=== PATIENT | female | born 1965 | race Caucasian/White ===

== ENCOUNTER 2016-05-03 11:13 | Outpatient (RCR) | payer OTHER, MEDICAID ==
[2016-05-03 10:45] LABS: MEAN CORPUSCULAR HGB CONC 34.7 g/dL (31.0-37.0); MEAN CORPUSCULAR VOLUME 93 FL (80-100); MEAN PLATELET VOLUME 9.7 FL (6.0-9.5); PLATELET COUNT 260 10^3uL (150-450); WHITE BLOOD COUNT 2.67 10^3uL (4.0-11.0)
[2016-05-03 11:03] LABS: MEAN CORPUSCULAR HEMOGLOBIN 32.3 PG (26.0-34.0)
[2016-05-03 11:07] LABS: BAND NEUTROPHILS % 0 % (0-6); EOSINOPHILS % 3 % (0-4); LYMPHOCYTES # 0.4 #; MONOCYTES # 0.2 #; MONOCYTES % 11 % (3-11); RBC MORPH NORMAL (NORMAL); SEGMENTED NEUTROPHILS % 71 % (51-67); TOTAL CELLS COUNTED 100
[2016-05-03 11:56] LABS: ALBUMIN 4.2 g/dL (3.4-5.0); ANION GAP 16.9 MEQ/L (3-15); CALCULATED IONIZED CALCIUM 4.2 mg/dL (3.8-4.6); MAGNESIUM* 2.1 mg/dL (1.6-2.3); PHOSPHORUS 4.9 mg/dL (2.4-4.9); TOTAL PROTEIN 7.7 g/dL (6.4-8.5)
[2016-06-08 10:51] LABS: MEAN CORPUSCULAR HGB CONC 34.8 g/dL (31.0-37.0); MEAN CORPUSCULAR VOLUME 93 FL (80-100); MEAN PLATELET VOLUME 10.2 FL (6.0-9.5); PLATELET COUNT 198 10^3uL (150-450); WHITE BLOOD COUNT 2.18 10^3uL (4.0-11.0)
[2016-06-08 10:57] LABS: ALBUMIN 4.2 g/dL (3.4-5.0); ANION GAP 18.1 MEQ/L (3-15); CALCULATED IONIZED CALCIUM 4.1 mg/dL (3.8-4.6); MAGNESIUM* 1.9 mg/dL (1.6-2.3); PHOSPHORUS 4.2 mg/dL (2.4-4.9); TOTAL PROTEIN 7.1 g/dL (6.4-8.5)
[2016-06-08 11:14] LABS: MEAN CORPUSCULAR HEMOGLOBIN 32.5 PG (26.0-34.0)
[2016-06-08 11:40] LABS: BAND NEUTROPHILS % 1 % (0-6); EOSINOPHILS % 3 % (0-4); LYMPHOCYTES # 0.2 #; MONOCYTES # 0.1 #; MONOCYTES % 7 % (3-11); SEGMENTED NEUTROPHILS % 77 % (51-67)
[2016-06-08 11:41] LABS: RBC MORPH NORMAL (NORMAL); TOTAL CELLS COUNTED 100
[2016-07-12 14:03] LABS: MEAN CORPUSCULAR VOLUME 95 FL (80-100); MEAN PLATELET VOLUME 9.6 FL (6.0-9.5); PLATELET COUNT 194 10^3uL (150-450); WHITE BLOOD COUNT 2.79 10^3uL (4.0-11.0)
[2016-07-12 14:17] LABS: MEAN CORPUSCULAR HEMOGLOBIN 33.8 PG (26.0-34.0); MEAN CORPUSCULAR HGB CONC 35.5 g/dL (31.0-37.0)
[2016-07-12 14:18] LABS: BAND NEUTROPHILS % 1 % (0-6); EOSINOPHILS % 6 % (0-4); LYMPHOCYTES # 0.2 #; MONOCYTES # 0.1 #; MONOCYTES % 4 % (3-11); RBC MORPH NORMAL (NORMAL); SEGMENTED NEUTROPHILS % 80 % (51-67); TOTAL CELLS COUNTED 100
[2016-07-12 14:32] LABS: ALBUMIN 3.4 g/dL (3.4-5.0); ANION GAP 13.6 MEQ/L (3-15); CALCULATED IONIZED CALCIUM 4.4 mg/dL (3.8-4.6); MAGNESIUM* 1.7 mg/dL (1.6-2.3); PHOSPHORUS 3.9 mg/dL (2.4-4.9); TOTAL PROTEIN 6.1 g/dL (6.4-8.5)
== END 2016-08-01 | disposition home or self-care (01) ==
LOC: LAB 11:13
PROVIDERS: ATTEND Internal Medicine Hematology & Oncology
DX: C71.1 Malignant neoplasm of frontal lobe (principal)
CPT/HCPCS: 36415; 80053; 83615; 83735; 84100; 85007; 85027

== ENCOUNTER → 2016-06-09 | Outpatient (REF) | payer OTHER ==
[~2016-06-09] MED LIST: ALPR1TAB7 PO; AMLO10TA82 PO; ATN25T PO; AZAT50TA PO; BACL10TA PO; CEPH-507 PO; CMBV14CC; DEXA2TAB PO; DEXA4TAB PO; DOXE50CA3 PO; ESCI10TA PO; ESCI10TA49 PO; FLUC100T6 PO; FLUT100D; FNT25TD TOP; LD5PT TOP; LEVO100T11 PO; LEVO125T PO; LORA0.5T PO; LVT.1T PO; MESA400T14 PO; METR500T PO; MULT1CAP27; OMEP20CA12 PO; ONDA8TAB13 PO; ONDA8TAB9 PO; OXYC1TAB8 PO; POTA10CA2 PO; POTA10TA10 PO; PRED10TA PO; PRED20TA PO; PROM25SU44 RC; RIVA15TA2 PO; RIVA20TA PO; ROSU20TA PO; SCOP1PAT10 TD; TEMO100C13 PO; TEMO250C6 PO; VIT1TABL57; ZOLP10TA PO
== END ==
LOC: LAB 11:32
PROVIDERS: ATTEND Internal Medicine Hematology & Oncology
DX: C71.1 Malignant neoplasm of frontal lobe (principal)
CPT/HCPCS: 87493

== ENCOUNTER → 2016-06-15 | Outpatient (CLI) | payer OTHER, MEDICAID ==
--- NOTE | 2016-06-15 15:35 | Diagnostic Imaging Report ---
INDICATION: Fall. Weakness. COMPARISON: None available. TECHNIQUE: AP and transscapular Y-view of the left shoulder. FINDINGS: There is anterior and inferior dislocation of the humeral head relative to the glenoid. No evidence of Hill-Sachs impaction fracture or displaced osseous Bankart lesion by radiography. AC joint appears grossly normal in alignment. IMPRESSION: Anterior dislocation of the shoulder. Dictated by: Dictated on workstation # [id number]
== END ==
LOC: RAD 14:36
PROVIDERS: ATTEND Internal Medicine Hematology & Oncology
DX: R53.1 Weakness (principal); S43.015A Anterior dislocation of left humerus, initial encounter; W19.XXXA Unspecified fall, initial encounter
CPT/HCPCS: 73030

== ENCOUNTER 2016-07-09 14:45 | Outpatient (RCR) | payer OTHER, MEDICAID | END 2016-07-23 12:00 | disposition home or self-care (01) | LOC: PT 14:45 | PROVIDERS: ATTEND Internal Medicine Hematology & Oncology | DX: S43.005D Unspecified dislocation of left shoulder joint, subsequent encounter (principal); W01.0XXD Fall on same level from slipping, tripping and stumbling without subsequent striking against object, subsequent encounter; R53.1 Weakness ==

== ENCOUNTER → 2016-07-12 | Outpatient (REF) | payer OTHER, MEDICAID | LOC: LAB 15:44 | PROVIDERS: ATTEND Family Medicine | DX: E03.9 Hypothyroidism, unspecified (principal) | CPT/HCPCS: 84443 ==

== ENCOUNTER → 2016-07-16 | Outpatient (CLI) | payer OTHER, MEDICAID | LOC: RAD 11:59 | PROVIDERS: ATTEND Internal Medicine Hematology & Oncology | DX: C71.1 Malignant neoplasm of frontal lobe (principal); G45.9 Transient cerebral ischemic attack, unspecified | CPT/HCPCS: 70553; A9579 ==

== ENCOUNTER → 2016-07-19 | Outpatient (CLI) | payer OTHER, MEDICAID | LOC: RAD 12:22 | PROVIDERS: ATTEND Internal Medicine Hematology & Oncology | DX: C71.1 Malignant neoplasm of frontal lobe (principal); G45.9 Transient cerebral ischemic attack, unspecified | CPT/HCPCS: 93306; 93880 ==

== ENCOUNTER 2016-08-09 10:24 | Outpatient (RCR) | payer OTHER, MEDICAID ==
[2016-08-09 10:34] LABS: MEAN CORPUSCULAR HGB CONC 35.2 g/dL (31.0-37.0); MEAN CORPUSCULAR VOLUME 95 FL (80-100); MEAN PLATELET VOLUME 9.8 FL (6.0-9.5); PLATELET COUNT 170 10^3uL (150-450); WHITE BLOOD COUNT 1.78 10^3uL (4.0-11.0)
[2016-08-09 10:36] LABS: MEAN CORPUSCULAR HEMOGLOBIN 33.6 PG (26.0-34.0)
[2016-08-09 11:06] LABS: BAND NEUTROPHILS % 0 % (0-6); EOSINOPHILS % 4 % (0-4); LYMPHOCYTES # 0.2 #; MONOCYTES # 0.1 #; MONOCYTES % 12 % (3-11); RBC MORPH NORMAL (NORMAL); SEGMENTED NEUTROPHILS % 72 % (51-67); TOTAL CELLS COUNTED 100
[2016-08-09 12:04] LABS: ALBUMIN 4.2 g/dL (3.4-5.0); ANION GAP 14.4 MEQ/L (3-15); CALCULATED IONIZED CALCIUM 4.3 mg/dL (3.8-4.6); MAGNESIUM* 1.8 mg/dL (1.6-2.3); TOTAL PROTEIN 6.8 g/dL (6.4-8.5)
[2016-09-25] MEDS ORDERED: ALPR1TAB2 PO (19:16)
[2016-09-25] MEDS ORDERED: SULF1TAB35 PO (19:19)
[2016-10-14 07:25] LABS: MEAN CORPUSCULAR VOLUME 93 FL (80-100); MEAN PLATELET VOLUME 9.7 FL (6.0-9.5); PLATELET COUNT 190 10^3uL (150-450)
[2016-10-14 08:05] LABS: ALBUMIN 3.9 g/dL (3.4-5.0); ANION GAP 15.8 MEQ/L (3-15); CALCULATED IONIZED CALCIUM 4.2 mg/dL (3.8-4.6); MAGNESIUM* 1.6 mg/dL (1.6-2.3); TOTAL PROTEIN 6.8 g/dL (6.4-8.5)
[2016-10-14 08:11] LABS: BAND NEUTROPHILS % 1 % (0-6); EOSINOPHILS % 5 % (0-4); LYMPHOCYTES # 0.3 #; MEAN CORPUSCULAR HEMOGLOBIN 33.4 PG (26.0-34.0); MEAN CORPUSCULAR HGB CONC 35.8 g/dL (31.0-37.0); MONOCYTES # 0.1 #; MONOCYTES % 7 % (3-11); SEGMENTED NEUTROPHILS % 60 % (51-67); TOTAL CELLS COUNTED 100
[2016-10-14 08:12] LABS: RBC MORPH NORMAL (NORMAL)
[2016-10-18 12:37] LABS: MEAN CORPUSCULAR HGB CONC 35.2 g/dL (31.0-37.0); MEAN CORPUSCULAR VOLUME 96 FL (80-100); MEAN PLATELET VOLUME 9.9 FL (6.0-9.5); PLATELET COUNT 161 10^3uL (150-450); WHITE BLOOD COUNT 12.35 10^3uL (4.0-11.0)
[2016-10-18 12:42] LABS: MEAN CORPUSCULAR HEMOGLOBIN 33.9 PG (26.0-34.0)
[2016-10-18 12:57] LABS: BAND NEUTROPHILS % 5 % (0-6); EOSINOPHILS % 3 % (0-4); MONOCYTES % 8 % (3-11); SEGMENTED NEUTROPHILS % 68 % (51-67); TOTAL CELLS COUNTED 100
[2016-10-18 12:58] LABS: RBC MORPH NORMAL (NORMAL)
== END 2016-11-03 19:15 | disposition home or self-care (01) ==
LOC: LAB 10:24
PROVIDERS: ATTEND Internal Medicine Hematology & Oncology
DX: C71.1 Malignant neoplasm of frontal lobe (principal); D70.9 Neutropenia, unspecified
CPT/HCPCS: 36415; 80053; 83615; 83735; 84100; 85007; 85025; 85027

== ENCOUNTER 2016-09-25 18:04 | Emergency (ER) | payer OTHER, MEDICAID ==
[~2016-09-25] VITALS: Ht 162.6 cm; Wt 47.1 kg
[~2016-09-25 18:04] MED LIST changes: -ALPR1TAB2 PO; -SULF1TAB35 PO
--- OUTSIDE RECORDS SUMMARY | 2016-09-25 18:09 | XMS REPORT | Continuity of Care Document ---
Author Author [facility] Organization [facility] Address Unknown Phone Unavailable Care Team Providers Care Email Specialist Name Role Phone Jeremy Joseph PCP [phone] Source Comments Some departments are not documenting in the electronic medical record. If you do not see the information that you expected, contact Release of Information in the Health Information Management department at [phone] for further assistance in locating additional records.[facility] Active Allergies and Adverse Reactions Allergen Noted Date Severity Reactions Comments Lane 12/31/2015 Low STOMACH UPSET Sulfa (Sulfonamide 12/31/2015 Medium HIVES Antibiotics) Current Medications Prescription Sig. Disp. Refills Start End Date Status Date zolpidem (AMBIEN) 10 mg Take 10 mg by mouth at Active tablet bedtime as needed for Sleep. prochlorperazine Take 10 mg by mouth every Active (COMPAZINE) 10 mg tablet 6 hours as needed. dexamethasone (DECADRON) Take by mouth. Take one Active 2 mg tablet tab by mouth every other day escitalopram oxalate Take 10 mg by mouth Active (LEXAPRO) 10 mg tablet daily. oxyCODONE/acetaminophen Take 1 Tab by mouth every Active (PERCOCET; ENDOCET) 4 hours as needed for 10/325 mg tablet Pain potassium chloride(+) Take 10 mEq by mouth Active (MICRO-K) 10 mEq capsule twice daily. Take with a meal and a full glass of water. promethazine (PHENERGAN) Insert or Apply 25 mg to Active 25 mg rectal suppository rectal area as directed every 12 hours as needed for Nausea. scopolamine Apply 1 Patch to top of Active (TRANSDERM-SCOP) 1.5 mg skin as directed every 72 patch hours. sulfamethoxazole-trimetho Take 1 Tab by mouth. One Active prim (BACTRIM DS) 800-160 tab by mouth daily on mg tablet Tuesday, Tuesday, and Tuesday temozolomide (TEMODAR) Take 1 Cap by mouth at Active 250 mg capsule bedtime daily. Take one tab per mouth one hour before meal or at bedtime, on days 1-5 of chemotherapy cycle ALPRAZolam (XANAX) 1 mg Take 1 mg by mouth three Active tablet times daily as needed for Anxiety. ondansetron (ZOFRAN) 8 mg Take 8 mg by mouth every Active tablet 8 hours as needed for Nausea. ondansetron (ZOFRAN ODT) Take 8 mg by mouth every Active 8 mg rapid dissolve 8 hours as needed for tablet Nausea. rivaroxaban (XARELTO) 20 Take 20 mg by mouth daily Active mg tab tablet with dinner. Active Problems Problem Noted Date Glioblastoma (HCC) 01/13/2016 Left hemiparesis (HCC) 01/13/2016 Social History Tobacco Use Types Packs/Day Years Used Date Current Every Day Smoker Cigarettes 1 20 Tobacco Cessation: Ready to Quit: No; Counseling Given: No Comments: Last Filed Vital Signs Vital Sign Reading Time Taken Blood Pressure 132/88 12/31/2015 10:41 AM CDT Pulse 76 12/31/2015 10:41 AM CDT Temperature 36 C (96.8 F) 12/31/2015 10:41 AM CDT Respiratory Rate 19 12/31/2015 10:41 AM CDT Height 1.626 m (5' 4") 12/31/2015 10:41 AM CDT Weight 73.936 kg (163 lb) 12/31/2015 10:41 AM CDT Body Mass Index 27.97 12/31/2015 10:41 AM CDT Oxygen Saturation 94% 12/31/2015 10:41 AM CDT Plan of Care Health Maintenance Due Date Last Done Comments Physical (Comprehensive) 10/31/1974 Exam Pertussis Vaccine 10/31/1978 Tetanus Vaccine 10/31/1984 Cervical Cancer Screening 10/31/1988 Breast Cancer Screening 2007 Influenza Vaccine 02/04/2017 Results from Last 3 Months Not on file
--- OUTSIDE RECORDS SUMMARY | 2016-09-25 18:11 | XMS REPORT | Continuity of Care Document ---
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 If you do not see the information that you expected, contact Release of Information in the Health Information Management department at [phone] for further assistance in locating additional records.[facility] Active Allergies and Adverse Reactions Allergen Noted Date Severity Reactions Comments [place] 12/31/2015 Low STOMACH UPSET Sulfa (Sulfonamide 12/31/2015 [...]
[2016-09-25] MEDS ORDERED: SODIUM CHLORIDE FLUSH 10 ML SYR IV PRN (18:40)
[2016-09-25] MEDS ORDERED: ALPR1TAB2 PO (19:16)
[2016-09-25] MEDS ORDERED: SULF1TAB35 PO (19:19)
[2016-09-25 19:22] LABS: ALBUMIN 4.2 g/dL (3.4-5.0); ANION GAP 16.9 MEQ/L (3-15); CALCULATED IONIZED CALCIUM 4.1 mg/dL (3.8-4.6); TOTAL PROTEIN 7.1 g/dL (6.4-8.5)
[2016-09-25 19:27] LABS: MEAN CORPUSCULAR VOLUME 94 FL (80-100); MEAN PLATELET VOLUME 9.8 FL (6.0-9.5); PLATELET COUNT 230 10^3uL (150-450); WHITE BLOOD COUNT 1.76 10^3uL (4.0-11.0)
[2016-09-25] MEDS: SODIUM CHLORIDE FLUSH 3 ML SYR IV PRN (19:33)
[2016-09-25] MEDS: HYDROmorphone 1 MG/ML (DILAUDID) SYRINGE IV ONE (19:58)
[2016-09-25 20:07] LABS: BAND NEUTROPHILS % 0 % (0-6); LYMPHOCYTES # 0.4 #; MEAN CORPUSCULAR HEMOGLOBIN 33.6 PG (26.0-34.0); MEAN CORPUSCULAR HGB CONC 35.8 g/dL (31.0-37.0)
[2016-09-25 20:08] LABS: ANISOCYTOSIS SLIGHT; EOSINOPHILS % 2 % (0-4); MONOCYTES # 0.2 #; MONOCYTES % 16 % (3-11); POIKILOCYTOSIS SLIGHT; SEGMENTED NEUTROPHILS % 61 % (51-67); TOTAL CELLS COUNTED 100
[2016-09-25 20:46] LABS: RBC MORPH SEE REFERENCE (NORMAL)
[2016-09-25] MEDS: METOCLOPRAMIDE 10 MG/2 ML (REGLAN) VIAL IV ONE (20:49)
[2016-09-25] MEDS: diphenhydrAMINE 50 MG/ML INJ (BENADRYL) IV ONE (20:54)
--- NOTE | 2016-09-25 21:52 | NUR ---
NOW RATES HEADACHE AT "5".
--- NOTE | 2016-09-25 22:00 | NUR ---
DR. JAMES HAS VISITED WITH PATIENT REGARDING HIS FINDINGS AND PLAN OF CARE.
--- NOTE | 2016-09-25 22:04 | NUR ---
PATIENT DENIES DISCOMFORT OTHER THAN HEADACHE ACROSS TOP OF HER HEAD. DENIES NAUSEA AT PRESENT.
--- NOTE | 2016-09-25 22:16 | NUR ---
PATIENT REPORT TO Conrad TIWARI RN WHO NOW ASSUMES CARE OF PATIENT.
[2016-09-25 23:00] VITALS: BP 105/75
== END 2016-09-25 23:01 | disposition short-term general hospital (02) ==
LOC: ED 18:07
DX: D72.819 Decreased white blood cell count, unspecified (principal); R19.7 Diarrhea, unspecified; C71.9 Malignant neoplasm of brain, unspecified; R63.4 Abnormal weight loss; Z68.1 Body mass index [BMI] 19.9 or less, adult
CPT/HCPCS: 36415; 80053; 85025; 96361; 96374; 96375; 99283; J1170; J1200; J2765; J7030

== ENCOUNTER → 2016-09-25 | Outpatient (CLI) | payer OTHER, MEDICAID ==
[~2016-09-25] MED LIST changes: +ALPR1TAB2 PO; +SULF1TAB35 PO
== END ==
LOC: EMS 22:50
PROVIDERS: ATTEND Internal Medicine
DX: R19.7 Diarrhea, unspecified (principal); E86.0 Dehydration; R51 Headache; D72.818 Other decreased white blood cell count; C71.9 Malignant neoplasm of brain, unspecified

== ENCOUNTER → 2016-10-14 | Outpatient (CLI) | payer MEDICAID, OTHER ==
[~2016-10-14] MED LIST changes: +ALPR1TAB2 PO; +SULF1TAB35 PO
--- NOTE | 2016-10-14 16:57 | Diagnostic Imaging Report ---
PROCEDURE: MR imaging of the brain with and without contrast. INDICATION: Brain tumor. TECHNIQUE: Multiplanar, multisequence MR imaging of the brain was performed with and without contrast. CORRELATION STUDY: Prior MRI examinations from 07/16/2016 to 02/18/2015. FINDINGS: Baseline imaging demonstrated a ring-enhancing mass at the level of the right basal ganglia with surrounding edema. On current examination, there is a continued predominantly cystic mass with various degrees of thickness of rim enhancement within the right basal ganglia. Current measurements at 2.3 cm AP by 2.1 cm transverse by 4.3 cm craniocaudal. Previously, 2.3 x 2.5 x 4.2 cm, respectively. Peripheral gradient signal changes compatible with hemosiderin again demonstrated. There is rather significant vasogenic edema surrounding this lesion throughout the adjacent white matter. There is localized mass effect upon the right lateral ventricle without significant midline shift. There is now a second ring-enhancing mass lesion just superior to the posterior margins of the lateral ventricle at the far posterior right frontal lobe. This measures 17 mm AP by 12 mm transverse by 16 mm craniocaudal. Apparent postsurgical change of the right frontal craniotomy. IMPRESSION: 1. 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 2. Development of a new ring-enhancing lesion in the far posterior superior medial right frontal lobe. Dictated by: Dictated on workstation # [id number]
== END ==
LOC: RAD 07:02
PROVIDERS: ATTEND Internal Medicine Hematology & Oncology
DX: C71.1 Malignant neoplasm of frontal lobe (principal)
CPT/HCPCS: 70553; A9579

== ENCOUNTER 2016-10-16 12:38 | Outpatient (RCR) | payer OTHER ==
[~2016-10-16] VITALS: Ht 162.6 cm; Wt 45.4 kg
[2016-10-16] MEDS: FILGRASTIM 300 MCG/ML INJ SCH (12:45)
--- NOTE | 2016-10-16 12:48 | NUR ---
Medication did not scan. Given in right upper arm.
[2016-10-17] MEDS: FILGRASTIM 300 MCG/ML INJ SCH (09:00)
[2016-10-17 12:12] VITALS: BP 101/76
--- NOTE | 2016-10-17 12:16 | NUR ---
Medication did not scan. Given in left upper arm.
== END 2016-11-03 18:21 | disposition home or self-care (01) ==
LOC: EUOP 10-17 11:59
PROVIDERS: ATTEND Internal Medicine Hematology & Oncology
DX: C71.1 Malignant neoplasm of frontal lobe (principal); D70.9 Neutropenia, unspecified
CPT/HCPCS: 96374; J1442